=== PATIENT | male | born 1950 | race Caucasian/White ===

== ENCOUNTER 2017-08-26 13:50 | Emergency (ER) | payer OTHER ==
[~2017-08-26] VITALS: Ht 180.3 cm; Wt 95.0 kg
[2017-08-26 14:08] VITALS: BP 148/100
== END 2017-08-26 17:45 | disposition left against medical advice (07) ==
LOC: EDBD 13:50 → ER 14:18
DX: Z53.21 Procedure and treatment not carried out due to patient leaving prior to being seen by health care provider (principal)